=== PATIENT | female | born 1955 | race Two or more races ===

== ENCOUNTER 2024-06-23 09:50 | Emergency (ER) | payer MEDICARE, MEDICAID, SELFPAY ==
[2024-06-23 09:54] VITALS: BP 118/73; PULSE 100; RESP 17; TEMP 37.2; O2SAT 97; BMI 25.0
--- NOTE | 2024-06-23 10:36 | EDRME_ITS ---
Rapid Medical Screening Exam RME Arrival date/time: 06/23/24 09:50 69-year-old female presents to the emergency department with complaints of G- tube leaking has had that G-tube for 1 month. I have greeted and performed a focused initial assessment of this patient. Initial appropriate labs ordered at this time. A comprehensive ED assessment and evaluation of the patient and analysis of all test and completion of medical decision making process will be conducted by additional ED provider. Chief Complaint: Abdominal Pain Time Seen by Provider: 06/23/24 10:14 Vital signs: Vital Signs Temperature 98.9 F 06/23/24 09:54 Pulse Rate 100 06/23/24 09:54 Respiratory Rate 17 06/23/24 09:54 Blood Pressure 118/73 06/23/24 09:54 Pulse Oximetry (%) 97 06/23/24 09:54 Oxygen Delivery Method Room Air 06/23/24 09:54
--- NOTE | 2024-06-23 11:33 | PC.NURSE ---
PEG TUBE REPLACE BY MERRILL BROWN. PT TOLERATED WELL. PENDING XRAY FOR PLACEMENT
--- NOTE | 2024-06-23 11:35 | PD.EDADULT ---
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 G-tube was placed approximately 1 month ago patient states that she has had a G-tube for approximately 6 months patient is awake alert oriented nontoxic-appearing in mild discomfort but not in any acute distress. RME / HPI RME / HPI narrative: 06/23/24 09:50 69-year-old female presents to the emergency department with complaints of G-tube leaking has had that G-tube for 1 month. I have greeted and performed a focused initial assessment of this patient. Initial appropriate labs ordered at this time. A comprehensive ED assessment and evaluation of the patient and analysis of all test and completion of medical decision making process will be conducted by additional ED provider. Related Data Home Medications ?Medication ?Instructions ?Recorded ?Confirmed cetirizine 10 mg tablet 10 mg PO QDAY 12/10/23 12/27/23 hydrocodone 5 mg-acetaminophen 325 1 tab PO Q8H PRN Pain 12/10/23 12/10/23 mg tablet omeprazole 20 mg capsule,delayed 20 mg PO QDAY 12/10/23 12/27/23 release ondansetron 8 mg disintegrating 8 mg PO Q8H PRN Nausea 12/10/23 12/27/23 tablet prochlorperazine maleate 10 mg 10 mg PO Q8H PRN Nausea 12/10/23 12/27/23 tablet (Compazine) Previous Rx's ?Medication ?Instructions ?Recorded blood sugar diagnostic (Contour #100 ea 12/13/23 Next Test Strips) lancets (Microlet Lancet) #100 ea 12/13/23 lidocaine HCl 2 % mucosal solution 1 ml PO PRN PRN for oral pain #100 12/17/23 mL swab (Toothette swabs) #1,000 ea 12/17/23 insulin glargine 100 unit/mL (3 18 unit (0.18 mL) subcut QAM 30 12/30/23 mL) subcutaneous pen days #5.4 mL metformin 1,000 mg tablet 1,000 mg feeding tube QDAY 30 days 12/30/23 #30 tabs pen needle, diabetic 29 gauge #100 ea 12/30/23 Allergies Allergy/AdvReac Type Severity Reaction Status Date / Time No Known Allergies Allergy Verified 06/23/24 09:53 Review of Systems Review of Systems Narrative Review of Systems: GEN: No fever, no chills, no weight loss EYES: No discharge, no visual changes, no pain HEENT: No ear pain, no congestion, no sore throat PULM: No shortness of breath, no cough, no congestion CV: No chest pain, no dyspnea on exertion, no palpitations GI: No nausea, no vomiting, no diarrhea, no pain, no constipation, + stoma tenderness : No frequency, no urgency, no dysuria MUSC/SKEL: No joint pain, no back pain SKIN: No rash PSYCH: No hallucinations, no depression HEME/LYMPH: No easy bleeding or bruising tendencies NEURO: No weakness, no headache Past Medical History Past Medical History NEUROLOGIC: Negative Neurological Disorders or Seizures CARDIAC: Negative Cardiac Disorders, Congestive Heart Failure or Hypertension RESPIRATORY: Negative Chronic Obstructive Pulmonary Disease (COPD) or Asthma GASTROINTESTINAL: Positive Gastrointestinal Disorders (GT) GENITOURINARY: Negative Genitourinary Disorders or Renal Disease REPRODUCTIVE: Positive Previous Pregnancies () MUSCULOSKELETAL: Negative Musculoskeletal Disorders ENDOCRINE: Positive Endocrine Disorders and Diabetes Mellitus Type 2; Negative Diabetes Mellitus Type 1 HEMATOLOGIC: Negative Blood Disorders or Sickle Cell Disease PSYCHO/SOCIAL: Negative Depression or Anxiety OTHER HISTORY: Positive Chemotherapy, Radiation Therapy and Cancer (THROAT/TOUNGUE CANCER); Negative Autoimmune Disease, Falls, Blood Transfusions, Anesthesia Reactions, MRSA, VRSA or Vancomycin-Resistant Enterococci Family History FAMILY HISTORY: Positive Family Surgery; Negative Family Cardiac Disorders or Family Cancer Surgical History SURGICAL: Positive Oral Surgery (tongue cancer removed), Throat Surgery (CANCER REMOVED) and Hysterectomy; Negative Endocrine Surgery or Abdominal Surgery Social History SMOKING STATUS: Never smoker SECOND HAND EXPOSURE: No ED Exam Narrative Physical exam: [General: Not in any acute distress Head normocephalic HEENT: Within acceptable limits Neck is supple nontender Chest equal chest rise nontender to palpation Respiratory: Clear to auscultation no wheezes crackles or rubs CV: Rate rhythm is regular no murmurs rubs or clicks Abdomen is distended secondary to body habitus soft nontender no masses center of her abdomen stoma site has an old G-tube admitting from it there is no surrounding erythema or edema small amount of serous fluid oozing from the site. Back: No CVA tenderness no spinous process tenderness from cervical spine thoracic and lumbar spine Skin: Intact no petechiae rash induration ulceration or crepitus Extremities: Moving all extremity against resistance cap refill less than 2 seconds neurosensory intact Neuro: Awake alert oriented x3 Glascow coma 15 no focal deficits] Course Quality Measures none Orders Category Date Time Status XR abdomen 1V Stat Exams 06/23/24 11:40 Completed Vital Signs Vital signs: Vital Signs Temperature 98.9 F 06/23/24 09:54 Pulse Rate 100 06/23/24 09:54 Respiratory Rate 17 06/23/24 09:54 Blood Pressure 118/73 06/23/24 09:54 Pulse Oximetry (%) 97 06/23/24 09:54 Oxygen Delivery Method Room Air 06/23/24 09:54 Procedures -ED Procedure Comment G-tube replacement. Patient was informed verbal consent obtained, old G-tube balloon was deflated smoothly retracted from the stoma without complication new G-tube balloon was tested no leaks, balloon was then deflated G-tube was advanced without complication through the stoma G-tube balloon was inflated with 10 mL of sterile saline. Mild retention on the G-tube showed a snug firm stop. Abdominal x-ray with Gastrografin ordered. Patient tolerated the procedure well nursing applied dressing. MDM Patient data External records reviewed:: [facility] previous records Clinical information provided by:: patient Social determinants that could affect healthcare access:: none Patient has the following chronic illnesses:: Adenocarcinoma of the neck diabetes How is presenting disease/condition affected by chronic disease/condition?: uneffected by Evaluation data The following diagnostics were reviewed and interpreted by me:: radiology exam(s) Lab and/or radiology exams considered but not ordered:: Single view abdomen x-ray shows the tube is in proper place and with Gastrografin flowing into the small intestine. Cse reviewed by art Farley agrees. Interpretation Summary: New G-tube in place Medications Medications considered but not ordered:: None Medication administrations:: None Consultations Consultation(s) initiated? (list below): No Diagnosis Differential Diagnosis ED Complaint MDM: G-tube failure with a G-tube replacement, stomal cellulitis Most likely diagnosis given after review of the tests above:: G-tube replacement Admission Indicated Admission indicated?: not indicated Explain why admission is indicated or not indicated:: Stable for discharge Admission Request Was there a request for admission?: No Disposition Plan Disposition Plan: Discharge Discharge Attestation Discharge Attestation: The patient and all family members were given an opportunity to ask questions and understood the discharge instructions. Discharge instructions specifically effects, indications for sooner follow up or return to the emergency department, and the expected course of current diagnosis. Patient condition: Stable Medical Decision Making Differential Diagnosis Differential Diagnosis: G-tube failure with a G-tube replacement, stomal cellulitis Discharge Plan Plan Patient Disposition: HOME (Self Care) Patient condition on transfer: Stable Prescriptions/Referrals Prescriptions/Med Rec: No Action cetirizine 10 mg Tablet 10 mg PO QDAY Rx Instructions: Take 1 Tablet by mouth once daily for 5 days Start the day of Chemo each cycle every 2 weeks. hydrocodone-acetaminophen 5-325 mg Tablet 1 tab PO Q8H PRN (Reason: Pain) prochlorperazine maleate [Compazine] 10 mg Tablet 10 mg PO Q8H PRN (Reason: Nausea) ondansetron 8 mg Tablet,Disintegrating 8 mg PO Q8H PRN (Reason: Nausea) omeprazole 20 mg Capsule,Delayed Release(Dr/Ec) 20 mg PO QDAY (DME) Contour Next Test Strips Strip See Rx Instructions .Route Qty: 100 0RF Rx Instructions: Please test once a day (DME) lancets [Microlet Lancet] Misc See Rx Instructions .Route Qty: 100 0RF Rx Instructions: Please test once a day lidocaine HCl 2 % solution 1 ml PO PRN PRN (Reason: for oral pain) Qty: 100 0RF (DME) Toothette Swab See Rx Instructions .Route Qty: 1000 0RF Rx Instructions: As directed insulin glargine 100 unit/mL (3 mL) insulin pen 18 unit subcut QAM 30 Days Qty: 5.4 3RF (DME) pen needle, diabetic 29 gauge needle See Rx Instructions .Route Qty: 100 0RF Rx Instructions: As directed metformin 1,000 mg tablet 1,000 mg feeding tube QDAY 30 Days Qty: 30 3RF Referrals: No Primary/Family,Physician [Primary Care Provider] - In 1 week Problem List Clinical Impression: Gastrostomy tube dysfunction Patient/Caregiver Discharge Instructions Other Activity Instructions:: Keep the site clean and dry follow-up with your primary care provider if the surrounding erythema edema return the emergency room for reevaluation. Print Language: Vietnamese Stand Alone Forms: Dina Award Info., Patient Portal Info Letter MD Attestation MD Attestation The patient was seen by the midlevel practitioner. I, the co-signing physician, was present during the entire ER visit. While I did not physically examine the patient, I was available for consultation as needed.
--- NOTE | 2024-06-23 11:40 | XR_ITS ---
Examination: Abdomen AP single view Technique: AP portable supine abdomen, single view Exam date and time: June 23, 2024 1141 hours INDICATIONS: Unknown position gastrostomy tube FINDINGS: Contrast opacifies the gastrostomy tube stomach duodenal bulb and sweep, no abnormal extravasation of contrast material IMPRESSION: Gastrostomy tube satisfactory position in the stomach
== END 2024-06-23 12:43 | disposition home or self-care (01) ==
PROVIDERS: Emergency Provider Emergency Medicine
DX: K94.23 Gastrostomy malfunction (principal)
CPT/HCPCS: 43762; 74018; 99283; Q9963

== ENCOUNTER 2024-07-03 19:06 | Emergency (ER) | payer MEDICARE, MEDICAID, SELFPAY ==
[2024-07-03 19:49] VITALS: BP 135/79; PULSE 89; RESP 18; TEMP 36.8; O2SAT 96
--- NOTE | 2024-07-03 19:59 | PD.EDRME ---
Rapid Medical Screening Exam RME Arrival date/time: 07/03/24 19:06 69F with history of DM and throat cancer and hence, PEG tube presents to ED with tube plugged. Chief Complaint: General Adult/Misc Complain Vital signs: Vital Signs Temperature 98.3 F 07/03/24 19:49 Pulse Rate 89 07/03/24 19:49 Respiratory Rate 18 07/03/24 19:49 Blood Pressure 135/79 H 07/03/24 19:49 Pulse Oximetry (%) 96 07/03/24 19:49 Oxygen Delivery Method Room Air 07/03/24 19:49
--- NOTE | 2024-07-03 20:49 | PD.EDADULT ---
ED General RME/HPI General Chief complaint: General Adult/Misc Complain Stated complaint: Peg tube clogged Time Seen by Provider: 07/03/24 20:26 Arrival date/time: 07/03/24 19:06 RME / HPI RME / HPI narrative: 07/03/24 19:06 69F with history of DM and throat cancer and hence, PEG tube presents to ED with tube plugged. DR. FLOREZ MAIN ED EVALUATION: 69 year old female presents to the Emergency Department with complaint of her G-tube clogged. Denies any other symptoms at this time. PMHx: Adenocarcinoma of the neck and active treatment, G-tube in place, and diabetes. Social Hx: No tobacco, alcohol, or substance use. Related Data Home Medications ?Medication ?Instructions ?Recorded ?Confirmed cetirizine 10 mg tablet 10 mg PO QDAY 12/10/23 12/27/23 hydrocodone 5 mg-acetaminophen 325 1 tab PO Q8H PRN Pain 12/10/23 12/10/23 mg tablet omeprazole 20 mg capsule,delayed 20 mg PO QDAY 12/10/23 12/27/23 release ondansetron 8 mg disintegrating 8 mg PO Q8H PRN Nausea 12/10/23 12/27/23 tablet prochlorperazine maleate 10 mg 10 mg PO Q8H PRN Nausea 12/10/23 12/27/23 tablet (Compazine) Previous Rx's ?Medication ?Instructions ?Recorded blood sugar diagnostic (Contour #100 ea 12/13/23 Next Test Strips) lancets (Microlet Lancet) #100 ea 12/13/23 lidocaine HCl 2 % mucosal solution 1 ml PO PRN PRN for oral pain #100 12/17/23 mL swab (Toothette swabs) #1,000 ea 12/17/23 insulin glargine 100 unit/mL (3 18 unit (0.18 mL) subcut QAM 30 12/30/23 mL) subcutaneous pen days #5.4 mL metformin 1,000 mg tablet 1,000 mg feeding tube QDAY 30 days 12/30/23 #30 tabs pen needle, diabetic 29 gauge #100 ea 12/30/23 Allergies Allergy/AdvReac Type Severity Reaction Status Date / Time No Known Allergies Allergy Verified 06/23/24 09:53 Review of Systems Review of Systems Systems Reviewed: All systems reviewed, normal except as documented Past Medical History Past Medical History GASTROINTESTINAL: Positive Gastrointestinal Disorders REPRODUCTIVE: Positive Previous Pregnancies ENDOCRINE: Positive Endocrine Disorders and Diabetes Mellitus Type 2 OTHER HISTORY: Positive Chemotherapy, Radiation Therapy and Cancer Family History FAMILY HISTORY: Positive Family Surgery Surgical History SURGICAL: Positive Oral Surgery, Throat Surgery and Hysterectomy Social History SMOKING STATUS: Never smoker SECOND HAND EXPOSURE: No SUBSTANCE USE: does not use ALCOHOL: Never ED Exam Narrative Physical exam: GENERAL APPEARANCE: alert and oriented x 4, well-developed, well-nourished, no acute distress VITALS: All vitals were reviewed and the pulse ox is 96% on room air, which is normal according to my interpretation. HEENT: Normocephalic, atraumatic; pupils equal, round, reactive to light; EOMI; mucous membranes pink, moist; oropharynx clear NECK: Supple LUNGS: CTABL; no wheezes, no rales, no rhonchi HEART: Regular rate, regular rhythm; normal S1, S2; no murmurs ABDOMEN: G tube in place; non distended; normal BS; soft, no tenderness, no guarding, no rebound; no masses, no organomegaly, no hernia BACK: no CVA tenderness EXTREMITIES: atraumatic; no edema NEUROLOGIC: awake; alert and oriented x4; cranial nerves II-XII grossly intact; no focal sensory or motor deficits PSYCHIATRIC: appropriate mood and affect SKIN: warm, dry, normal color; no rashes Course Course Course Narrative: Nurse flushed tube and unclogged Quality Measures none Reevaluation(s) Reevaluation #1: Patient remains clinically stable throughout the emergency department visit. Re-assessment at the time of disposition demonstrates that the patient is in no acute distress. We reviewed all the results, analysis, and treatment plans. Patient is amenable to discharge. Strict return precautions were outlined. Patient was discharged in stable condition. Time: 21:30 Vital Signs Vital signs: Vital Signs Temperature 98.3 F 07/03/24 19:49 Pulse Rate 89 07/03/24 19:49 Respiratory Rate 18 07/03/24 19:49 Blood Pressure 135/79 H 07/03/24 19:49 Pulse Oximetry (%) 96 07/03/24 19:49 Oxygen Delivery Method Room Air 07/03/24 19:49 [facility] Patient data External records reviewed:: [facility] previous records (Reviewed last ED visit dated 06/23/24, discharged with the following: Gastrostomy tube dysfunction.) Clinical information provided by:: patient Social determinants that could affect healthcare access:: none Patient has the following chronic illnesses:: Adenocarcinoma of the neck and active treatment, G-tube in place, and diabetes. How is presenting disease/condition affected by chronic disease/condition?: exacerbated by Evaluation data The following diagnostics were reviewed and interpreted by me:: other (specify) (none) Lab and/or radiology exams considered but not ordered:: none Interpretation Summary: n/a Medications Medications considered but not ordered:: none Medication administrations:: none Consultations Consultation(s) initiated? (list below): No Diagnosis Differential Diagnosis ED Complaint MDM: Gastrostomy tube dysfunction, tube blockage, tube dislodgement Most likely diagnosis given after review of the tests above:: PEG tube malfunction Admission Indicated Admission indicated?: not indicated Explain why admission is indicated or not indicated:: Patient has no emergent abnormalities on his studies and can be managed on an outpatient basis. Admission Request Was there a request for admission?: No Disposition Plan Disposition Plan: Discharge Discharge Attestation Discharge Attestation: The patient and all family members were given an opportunity to ask questions and understood the discharge instructions. Discharge instructions specifically effects, indications for sooner follow up or return to the emergency department, and the expected course of current diagnosis. Patient condition: Stable Medical Decision Making MDM Narrative MDM Narrative: Silvia Mcneill am scribing for and in the presence of Dr. Florez. Differential Diagnosis Differential Diagnosis: Gastrostomy tube dysfunction, tube blockage, tube dislodgement Discharge Plan Plan Patient Disposition: HOME (Self Care) Prescriptions/Referrals Prescriptions/Med Rec: No Action cetirizine 10 mg Tablet 10 mg PO QDAY Rx Instructions: Take 1 Tablet by mouth once daily for 5 days Start the day of Chemo each cycle every 2 weeks. hydrocodone-acetaminophen 5-325 mg Tablet 1 tab PO Q8H PRN (Reason: Pain) prochlorperazine maleate [Compazine] 10 mg Tablet 10 mg PO Q8H PRN (Reason: Nausea) ondansetron 8 mg Tablet,Disintegrating 8 mg PO Q8H PRN (Reason: Nausea) omeprazole 20 mg Capsule,Delayed Release(Dr/Ec) 20 mg PO QDAY (DME) Contour Next Test Strips Strip See Rx Instructions .Route Qty: 100 0RF Rx Instructions: Please test once a day (DME) lancets [Microlet Lancet] Misc See Rx Instructions .Route Qty: 100 0RF Rx Instructions: Please test once a day lidocaine HCl 2 % solution 1 ml PO PRN PRN (Reason: for oral pain) Qty: 100 0RF (DME) Toothette Swab See Rx Instructions .Route Qty: 1000 0RF Rx Instructions: As directed insulin glargine 100 unit/mL (3 mL) insulin pen 18 unit subcut QAM 30 Days Qty: 5.4 3RF (DME) pen needle, diabetic 29 gauge needle See Rx Instructions .Route Qty: 100 0RF Rx Instructions: As directed metformin 1,000 mg tablet 1,000 mg feeding tube QDAY 30 Days Qty: 30 3RF Problem List Clinical Impression: PEG tube malfunction Patient/Caregiver Discharge Instructions Education Materials: Understanding PEG Tube Feeding Print Language: Occitan Stand Alone Forms: Dina Award Info., Patient Portal Info Letter
[2024-07-03 21:46] VITALS: BP 140/69; PULSE 76; RESP 19; TEMP 36.7; O2SAT 100
== END 2024-07-03 21:47 | disposition home or self-care (01) ==
LOC: SERX 21:49
PROVIDERS: Emergency Provider Emergency Medicine; PCP Nurse Practitioner Family
DX: K94.23 Gastrostomy malfunction (principal)
CPT/HCPCS: 99281

== ENCOUNTER → 2024-08-13 | Outpatient (CLI) | payer SELFPAY ==
[2024-08-13 12:52] LABS: Basophils % (Auto) 1 % (0-2.5); Eosinophils # (Auto) 0.2 Thou/mm3 (0.0-0.5); Eosinophils % (Auto) 3 % (0-10); Hematocrit 35.3 % (36.0-46.0); Hemoglobin 12.2 g/dL (12.0-16.0); Immature Granulocytes % (Auto) 1 % (0-0); Immature Granulocytes Auto 0.03 Thou/mm3 (0.00-0.00); Lymphocytes # (Auto) 1.3 Thou/mm3 (1.0-4.8); Lymphocytes % (Auto) 19 % (10-50); Mean Corpuscular HGB Conc 34.6 g/dl (31.0-37.0); Mean Corpuscular Hemoglobin 36.7 pg (25.0-35.0); Mean Corpuscular Volume 106 fL (80-100); Monocytes # (Auto) 0.7 Thou/mm3 (0.0-0.8); Monocytes % (Auto) 11 % (0-12); Neutrophils # (Auto) 4.4 Thou/mm3 (1.8-7.7); Neutrophils % (Auto) 66 % (37-80); Nucleated Red Blood Cell % 0 /100 WBC (0); Platelet Count 155 Thou/mm3 (140-440); RDW Standard Deviation 48.9 fL (36.4-46.3); Red Blood Count 3.32 Miln/mm3 (4.00-5.20); White Blood Count 6.6 Thou/mm3 (3.6-11.0)
[2024-08-13 13:06] LABS: INR 1.1 (0.9-1.3); Partial Thromboplastin Time 27.2 Seconds (22.0-36.0); Prothrombin Time 11.8 Seconds (9.0-12.2)
== END | disposition home or self-care (01) ==
PROVIDERS: PCP Family Medicine; Referring Provider Internal Medicine Gastroenterology; Visit Provider Internal Medicine Gastroenterology
DX: K94.29 Other complications of gastrostomy (principal)
CPT/HCPCS: 36415; 85025; 85610; 85730

== ENCOUNTER 2024-12-14 14:17 | Emergency (ER) | payer MEDICARE, MEDICAID, SELFPAY ==
[2024-12-14 14:41] VITALS: BP 111/66; PULSE 97; RESP 20; TEMP 37.2; O2SAT 96
--- NOTE | 2024-12-14 14:46 | XR_ITS ---
Examination: PA chest single view TECHNIQUE: Upright PA chest single view Date and time: December 14, 2024 1454 hours Indications coughing difficulty swallowing 3 days. FINDINGS: Normal heart size Port-A-Cath tip SVC satisfactory position No pneumonia or pulmonary edema Tube overlies the upper midline abdomen Prominent osteopenia IMPRESSION: No pneumonia or pulmonary edema
--- NOTE | 2024-12-14 14:52 | PD.EDDENTL ---
ED Dental RME/HPI General Chief complaint: Dental/Oral/Throat Stated complaint: COUGH, TROUBLE SWALLOWING X 2 WEEKS Time Seen by Provider: 12/14/24 14:23 Source: patient and family Arrival date/time: 12/14/24 14:17 This is a case of 69 year old female with his came in with sorethroat for 2 weeks and productive cough and nasal congestion with mild hoarseness of voice and pain pain upon swallowing patient still able to swallow her saliva no fever no chills no SOB no chest pain no drooling of saliva Mode of arrival: ambulatory Limitations: no limitations Related Data Home Medications ?Medication ?Instructions ?Recorded ?Confirmed cetirizine 10 mg tablet 10 mg PO QDAY 12/10/23 12/27/23 hydrocodone 5 mg-acetaminophen 325 1 tab PO Q8H PRN Pain 12/10/23 12/10/23 mg tablet omeprazole 20 mg capsule,delayed 20 mg PO QDAY 12/10/23 12/27/23 release ondansetron 8 mg disintegrating 8 mg PO Q8H PRN Nausea 12/10/23 12/27/23 tablet prochlorperazine maleate 10 mg 10 mg PO Q8H PRN Nausea 12/10/23 12/27/23 tablet (Compazine) Previous Rx's ?Medication ?Instructions ?Recorded blood sugar diagnostic (Contour #100 ea 12/13/23 Next Test Strips) lancets (Microlet Lancet) #100 ea 12/13/23 lidocaine HCl 2 % mucosal solution 1 ml PO PRN PRN for oral pain #100 12/17/23 mL swab (Toothette swabs) #1,000 ea 12/17/23 insulin glargine 100 unit/mL (3 18 unit (0.18 mL) subcut QAM 30 12/30/23 mL) subcutaneous pen days #5.4 mL metformin 1,000 mg tablet 1,000 mg feeding tube QDAY 30 days 12/30/23 #30 tabs pen needle, diabetic 29 gauge #100 ea 12/30/23 albuterol sulfate 90 mcg/actuation 2 inh inhalation Q4H PRN shortness 12/14/24 breath activated powder inhaler of breath or wheezing #1 ea amoxicillin 875 mg-potassium 1 tab PO BID 10 days #20 tabs 12/14/24 clavulanate 125 mg tablet lidocaine HCl 2 % mucosal solution 15 ml PO Q4HR PRN sorethroat #100 12/14/24 (Lidocaine Viscous) mL promethazine 6.25 mg/5 mL oral 6.25 mg (5 mL) PO TID PRN cough 12/14/24 syrup #100 mL Allergies Allergy/AdvReac Type Severity Reaction Status Date / Time No Known Allergies Allergy Verified 12/14/24 14:18 Review of Systems Review of Systems Systems Reviewed: All systems reviewed, normal except as documented Constitutional Constitutional: Reports system reviewed and no additional complaints, except as documented, Reports as per HPI, Denies chills, Denies excessive sweating, Denies fatigue, Denies fever(s), Denies headache(s), Denies increased appetite, Denies poor appetite, Denies lethargy, Denies malaise, Denies night sweats and Denies snoring ENT Ears, Nose, Mouth, and Throat: Reports system reviewed and no additional complaints, except as documented, Reports as per HPI, Denies abnormal hearing, Denies bleeding gums, Denies change in voice, Denies dental pain, Denies disequilibrium, Denies dizziness, Denies dry mouth, Denies dysphagia, Denies ear discharge, Denies otalgia, Denies epistaxis, Denies facial pain, Denies halitosis, Denies headache(s), Denies hearing loss, Reports hoarseness, Denies lip swelling, Denies mouth lesions, Denies mouth pain, Reports nasal congestion, Reports nasal discharge, Denies nasal obstruction, Denies nasal trauma, Denies neck mass, Denies neck pain, Denies nose pain, Denies odynophagia, Denies post nasal drip, Denies sinus pain, Denies sinus pressure, Reports sore throat, Denies throat swelling, Denies tinnitus, Denies tongue swelling and Denies vertigo Cardiovascular Cardiovascular: Reports system reviewed and no additional complaints, except as documented, Reports as per HPI, Denies chest pain, Denies dyspnea and Denies dyspnea on exertion Respiratory Respiratory: Reports system reviewed and no additional complaints, except as documented, Reports as per HPI, Denies change in phlegm color, Denies chest congestion, Reports cough, Denies dyspnea, Denies dyspnea on exertion, Denies excessive phlegm production, Denies hemoptysis, Denies pain on inspiration, Denies pain with cough, Denies snoring and Denies stridor Gastrointestinal Gastrointestinal: Reports system reviewed and no additional complaints, except as documented, Reports as per HPI, Denies dysphagia and Denies odynophagia Musculoskeletal Musculoskeletal: Reports system reviewed and no additional complaints, except as documented, Reports as per HPI and Denies neck pain Integumentary/Breasts Skin/Breast: Reports system reviewed and no additional complaints, except as documented and Reports as per HPI Neurologic Neurologic: Reports system reviewed and no additional complaints, except as documented, Reports as per HPI, Denies abnormal hearing, Denies disequilibrium, Denies dizziness, Denies headache(s) and Denies vertigo Endocrine Endocrine: Denies excessive sweating and Denies fatigue Allergic/Immunologic Allergic/Immunologic: Denies lip swelling, Denies throat swelling and Denies tongue swelling Past Medical History Past Medical History NEUROLOGIC: Negative Neurological Disorders or Seizures CARDIAC: Negative Cardiac Disorders, Congestive Heart Failure or Hypertension RESPIRATORY: Negative Chronic Obstructive Pulmonary Disease (COPD) or Asthma GASTROINTESTINAL: Positive Gastrointestinal Disorders GENITOURINARY: Negative Genitourinary Disorders or Renal Disease REPRODUCTIVE: Positive Previous Pregnancies MUSCULOSKELETAL: Negative Musculoskeletal Disorders ENDOCRINE: Positive Endocrine Disorders and Diabetes Mellitus Type 2; Negative Diabetes Mellitus Type 1 HEMATOLOGIC: Negative Blood Disorders or Sickle Cell Disease PSYCHO/SOCIAL: Negative Depression or Anxiety OTHER HISTORY: Positive Chemotherapy, Radiation Therapy and Cancer; Negative Autoimmune Disease, Falls, Blood Transfusions, Anesthesia Reactions, MRSA, VRSA or Vancomycin-Resistant Enterococci Family History FAMILY HISTORY: Positive Family Surgery; Negative Family Cardiac Disorders or Family Cancer Surgical History SURGICAL: Positive Oral Surgery, Throat Surgery and Hysterectomy; Negative Endocrine Surgery or Abdominal Surgery Social History SMOKING STATUS: Never smoker SECOND HAND EXPOSURE: No SUBSTANCE USE: does not use ED Exam General Limitations: Present no limitations General appearance: Present alert and in no apparent distress; Absent appears intoxicated, lethargic or in distress Head Head exam: Present atraumatic and normocephalic Eye Eye exam: Present normal appearance, PERRL and EOMI Expanded ENT Exam Nasal speculum exam: Bilateral: normal Mouth exam: Present normal external inspection Throat exam: Present tonsillar erythema, tonsillomegaly, tonsillar exudate and other (tonsillar swollen red mild exudate uvula normal no peritonsillar abscess no neck mass no ludwigs angina no drooling of [place] no muffled voice no hot potato voice) Neck Neck exam: Present normal inspection, full ROM and trachea midline; Absent tenderness, meningismus, lymphadenopathy or thyromegaly Chest Chest inspection: Present normal inspection and symmetric chest wall rise; Absent tenderness Respiratory Respiratory exam: Present wheezes (mild both lower lung); Absent respiratory distress, stridor, accessory muscle use or prolonged expiratory phase Cardiovascular Cardiovascular exam: Present regular rate, normal rhythm and normal heart sounds; Absent bradycardia, tachycardia, irregular rhythm, systolic murmur or diastolic murmur Abdominal Exam Abdominal exam: Present soft; Absent tenderness External exam: Present normal external exam Extremities Exam Extremities exam: Present normal inspection and full ROM Neurological Exam Neurological exam: Present alert, oriented X3, normal gait and reflexes normal; Absent motor sensory deficit Course Quality Measures none Orders Category Date Time Status XR chest 1V portable Stat Exams 12/14/24 14:46 Taken Strep A Rapid Stat Lab 12/14/24 14:51 Completed cefTRIAXone [Rocephin] 1,000 mg Med 12/14/24 15:31 Discontinued Lidocaine 1% 20 ml [Xylocaine 1% 20 ML] 2.1 ml IM X1 Vital Signs Vital signs: Vital Signs Temperature 98.9 F 12/14/24 14:41 Pulse Rate 97 12/14/24 14:41 Respiratory Rate 20 12/14/24 14:41 Blood Pressure 111/66 12/14/24 14:41 Pulse Oximetry (%) 96 12/14/24 14:41 Oxygen Delivery Method Room Air 12/14/24 14:41 oxygen saturation 96 percent wnl Dental / Oral MDM Narrative MDM Narrative:: This is a case of 69 year old female with his came in with sorethroat for 2 weeks and productive cough and nasal congestion with mild hoarseness of voice and pain pain upon swallowing patient still able to swallow her saliva no fever no chills no SOB no chest pain no drooling of saliva Physical exam showed Test as follow negative rapid strep xray nor mal no infiltrated no pneumonia Based on my physical exam and history patient symptoms suggestive of tonsillitis bronchitis and will be treated with rocpehin im here prescibed with augmentin ventloin inhaler lidocaine viscous for sorethroat and cought medication Patient was discharged with comfortable condition walking with stable gait. Patient verbalized no further complains explained diagnosis and answered patient question. Patient is comfrtable with the proposed management plan including the need to follow up with his/her primary care physician and any specialist if applicable Discussed patient for any urgent condition or worsening sx, He/She needed to go to emergncy room immediately or call 911. Patient acknowledge the responsibility to follow up as instructed and to monitor her/his symptoms. For any persistnce of the symtoms for more than 3-5 days reurn precaution advsied. Discussed the result of the test and was given printed discharge instruction tonsillar swollen red mild exudate uvula normal no peritonsillar abscess no neck mass no ludwigs angina no drooling of [place] no muffled voice no hot potato voice Patient data External records reviewed:: [facility] previous records Clinical information provided by:: patient and family Social determinants that could affect healthcare access:: none Patient has the following chronic illnesses:: none How is presenting disease/condition affected by chronic disease/condition?: no chronic disease Evaluation data The following diagnostics were reviewed and interpreted by me:: lab results and radiology exam(s) Lab and/or radiology exams considered but not ordered:: reviwed Interpretation Summary: reviewed Medications / Prescriptions Medications or Prescriptions considered but not ordered:: given Medication administrations:: Medication Administration History Discontinued Medications Ceftriaxone Sodium 1,000 mg/ (Lidocaine HCl 2.1 ml) 0 mg IM X1 ONE Stop: 12/14/24 15:32 given Consultations Consultation(s) initiated? (list below): No Diagnosis Most likely diagnosis given after review of the tests above:: tonsillitis, pharyngitis Admission Indicated Admission indicated?: not indicated Explain why admission is indicated or not indicated:: not indicated Admission Request Was there a request for admission?: No Admission Attestation Admission request attestation: not indicated Disposition Plan Disposition Plan: Discharge Discharge Attestation Discharge Attestation: The patient and all family members were given an opportunity to ask questions and understood the discharge instructions. Discharge instructions specifically effects, indications for sooner follow up or return to the emergency department, and the expected course of current diagnosis. Patient condition: Stable Discharge Plan Plan Patient Disposition: HOME (Self Care) Patient condition on transfer: Stable Prescriptions/Referrals Prescriptions/Med Rec: New amoxicillin-pot clavulanate 875-125 mg tablet 1 tab PO BID 10 Days Qty: 20 0RF lidocaine HCl [Lidocaine Viscous] 2 % solution 15 ml PO Q4HR PRN (Reason: sorethroat) Qty: 100 0RF albuterol sulfate 90 mcg/actuation aerosol powdr breath activated 2 inh inhalation Q4H PRN (Reason: shortness of breath or wheezing) Qty: 1 0RF promethazine 6.25 mg/5 mL syrup 6.25 mg PO TID PRN (Reason: cough) Qty: 100 0RF Rx Instructions: 3 doses during day; last dose no later than 4 hr before bedtime No Action cetirizine 10 mg Tablet 10 mg PO QDAY Rx Instructions: Take 1 Tablet by mouth once daily for 5 days Start the day of Chemo each cycle every 2 weeks. hydrocodone-acetaminophen 5-325 mg Tablet 1 tab PO Q8H PRN (Reason: Pain) prochlorperazine maleate [Compazine] 10 mg Tablet 10 mg PO Q8H PRN (Reason: Nausea) ondansetron 8 mg Tablet,Disintegrating 8 mg PO Q8H PRN (Reason: Nausea) omeprazole 20 mg Capsule,Delayed Release(Dr/Ec) 20 mg PO QDAY (DME) Contour Next Test Strips Strip See Rx Instructions .Route Qty: 100 0RF Rx Instructions: Please test once a day (DME) lancets [Microlet Lancet] Misc See Rx Instructions .Route Qty: 100 0RF Rx Instructions: Please test once a day lidocaine HCl 2 % solution 1 ml PO PRN PRN (Reason: for oral pain) Qty: 100 0RF (DME) Toothette Swab See Rx Instructions .Route Qty: 1000 0RF Rx Instructions: As directed insulin glargine 100 unit/mL (3 mL) insulin pen 18 unit subcut QAM 30 Days Qty: 5.4 3RF (DME) pen needle, diabetic 29 gauge needle See Rx Instructions .Route Qty: 100 0RF Rx Instructions: As directed metformin 1,000 mg tablet 1,000 mg feeding tube QDAY 30 Days Qty: 30 3RF Referrals: No Primary/Family,Physician [Primary Care Provider] - In 1 week Problem List Clinical Impression: Acute tonsillitis, Acute bronchitis Patient/Caregiver Discharge Instructions Education Materials: Acute Bronchitis, ED Tonsillitis (Child) Additional Instructions: increase water intake warm saline gurgle Print Language: Bol[place]ian Stand Alone Forms: Dina Award Info., Patient Portal Info Letter PA/DEBONE PROCESSING SUPERVISOR Supervising Physician PA/DEBONE PROCESSING SUPERVISOR Supervising Physician: dr [email or web address]
[2024-12-14 15:24] LABS: Strep A Rapid Negative (Negative)
[2024-12-14] MEDS: cefTRIAXone 1,000 MG, LIDOCAINE 1% 20 ML 2.1 ML IM (15:54)
== END 2024-12-14 16:01 | disposition home or self-care (01) ==
PROVIDERS: Nurse Practitioner Family; Emergency Provider Family Medicine
DX: J03.90 Acute tonsillitis, unspecified (principal); J20.9 Acute bronchitis, unspecified
CPT/HCPCS: 71045; 87651; 96372; 99283; J0696; J3490

== ENCOUNTER → 2025-02-20 | Outpatient (CLI) | payer MEDICARE, MEDICAID, SELFPAY ==
--- NOTE | 2025-02-20 09:30 | XR_ITS ---
Examination: Bone densitometry Date and time of exam:February 20, 2025 0940 hours INDICATIONS: Menopause age 50 Technique: Lumbar spine and hip total bone mineralization values of an calculated. Peak reference and age match control results have been displayed. Findings: Lumbar spine total bone mineralization is0.752 gm/cm2. This is 2.7 standard deviations below peak reference. This is 0.6 standard deviations below age-matched controls. Hip total bone mineralization is 0.626 gm/cm2 This is 2.6 standard deviations below peak reference. This is 1.1 standard deviations below age-matched controls Impression: There is osteoporosis based on lumbar spine measurements. There is osteoporosis based on hip measurements
== END | disposition home or self-care (01) ==
LOC: CDIM 08:56
PROVIDERS: Referring Provider Nurse Practitioner Family; Visit Provider Nurse Practitioner Family
DX: Z13.820 Encounter for screening for osteoporosis (principal); M81.0 Age-related osteoporosis without current pathological fracture
CPT/HCPCS: 77080

== ENCOUNTER → 2025-04-07 | Outpatient (CLI) | payer MEDICARE, MEDICAID, SELFPAY ==
--- NOTE | 2025-04-07 | XR_ITS ---
Examination: Bilateral hands 4 views TECHNIQUE: AP lateral right and left hands total 4 views Date and time: April 07, 2025 1142 hours INDICATIONS: Bilateral hand pain and stiffness 3 weeks. FINDINGS: Severe osteopenia Mild diffuse narrowing joints of the wrists and hands bilaterally No definite erosive arthritis No fractures No foreign bodies IMPRESSION: Severe osteopenia Mild diffuse narrowing joints of the wrists and hands bilaterally without definite erosive arthritis Mild to moderate osteoarthritis of the first carpometacarpal joints
== END | disposition home or self-care (01) ==
PROVIDERS: PCP Nurse Practitioner Family; Referring Provider Nurse Practitioner Family; Visit Provider Nurse Practitioner Family
DX: M85.842 Other specified disorders of bone density and structure, left hand (principal); M85.841 Other specified disorders of bone density and structure, right hand; M25.842 Other specified joint disorders, left hand; M25.841 Other specified joint disorders, right hand; M19.042 Primary osteoarthritis, left hand; M19.041 Primary osteoarthritis, right hand
CPT/HCPCS: 73120

== ENCOUNTER → 2025-05-21 | Outpatient (CLI) | payer MEDICARE, MEDICAID, SELFPAY ==
--- NOTE | 2025-05-21 11:00 | XR_ITS ---
Examination: Pelvic ultrasound, transabdominal, complete Technique: Transabdominal ultrasound of the pelvis performed using grayscale imaging Date and time of exam: May 21, 2025, 1127 hours INDICATIONS: Hysterectomy 2004, lower abdominal pelvic pain beginning 1 week ago. FINDINGS: Absent uterus, absent ovaries. No free fluid in the pelvis No pelvic mass IMPRESSION: No free fluid in the pelvis, no pelvic mass
--- NOTE | 2025-05-21 11:00 | XR_ITS ---
Examination: Abdomen sonogram, complete Date and time of exam: May 21, 2025, 1116 hours INDICATIONS: Lower pelvic pain beginning 1 week ago. Technique: Multiple real-time grayscale transabdominal sonographic images of the abdomen have been obtained. Findings: Normal gallbladder. 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
== END | disposition home or self-care (01) ==
PROVIDERS: PCP Nurse Practitioner Family; Referring Provider Nurse Practitioner Family; Visit Provider Nurse Practitioner Family
DX: K76.0 Fatty (change of) liver, not elsewhere classified (principal); N28.89 Other specified disorders of kidney and ureter
CPT/HCPCS: 76700; 76856

== ENCOUNTER 2025-06-05 14:53 | Emergency (ER) | payer MEDICAID, SELFPAY ==
[2025-06-05 14:54] VITALS: BMI 24.5
[2025-06-05 15:00] VITALS: BP 142/82; PULSE 93; RESP 20; TEMP 36.9; O2SAT 96
--- NOTE | 2025-06-05 15:24 | EDNOTE_ITS ---
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 Denies any vomiting, diarrhea, fever, abdominal pain, dysuria, rash. translation with Franky Marj [facility] at [facility] Related Data Home Medications ?Medication ?Instructions ?Recorded ?Confirmed cetirizine 10 mg tablet 10 mg PO QDAY 12/10/2312/26 hydrocodone 5 mg-acetaminophen 325 1 tab PO Q8H PRN Pa in 12/10/23 12/10/23 mg tablet omeprazole 20 mg capsule,delayed 20 mg PO QDAY 4 12/27/23 release ondansetron 8 mg disintegrating 8 mg PO Q8H PRN Nausea 12/10/23 12/27/23 tablet prochlorperazine maleate 10 mg 10 mg PO Q8H PRN Nausea 12/10/23 12/27/23 tablet (Compazine) Previous Rx's ?Medication ?Instructions ?Recorded blood sugar diagnostic (Contour #100 ea 12/13/23 Next Test Strips) lancets (Microlet Lancet) #100 ea 12/13/23 lidocaine HCl 2 % mucosal solution 1 ml PO PRN PRN for oral pain #100 12/17/23 mL swab (Toothette swabs) #1,000 ea 12/17/23 insulin glargine 100 unit/mL (3 18 unit (0.18 mL) subc ut QAM 30 12/30/23 mL) subcutaneous pen days #5.4 mL metformin 1,000 mg tablet 1,000 mg feeding tube QDAY 3 0 days 12/30/23 #30 tabs pen needle, diabetic 29 gauge #100 ea 12/30/23 albuterol sulfate 90 mcg/actuation 2 inh inhalation Q4 H PRN shortness 12/14/24 breath activated powder inhaler of breath or wheezing #1 ea lidocaine HCl 2 % mucosal solution 15 ml PO Q4HR PRN s orethroat #100 12/14/24 (Lidocaine Viscous) mL promethazine 6.25 mg/5 mL oral 6.25 mg (5 mL) PO TID P RN cough 12/14/24 syrup #100 mL Allergies Allergy/AdvReac Type Severity Reaction Status Date / Time No Known Allergies Allergy Verified 06/05/25 14:54 Past Medical History Past Medical History NEUROLOGIC: Negative Neurological Disorders or Seizures CARDIAC: Negative Cardiac Disorders, Congestive Heart Failure or Hypertension RESPIRATORY: Negative Chronic Obstructive Pulmonary Disease (COPD) or Asthma GASTROINTESTINAL: Positive Gastrointestinal Disorders GENITOURINARY: Negative Genitourinary Disorders or Renal Disease REPRODUCTIVE: Positive Previous Pregnancies MUSCULOSKELETAL: Negative Musculoskeletal Disorders ENDOCRINE: Positive Endocrine Disorders and Diabetes Mellitus Type 2; Negative Diabetes Mellitus Type 1 HEMATOLOGIC: Negative Blood Disorders or Sickle Cell Disease PSYCHO/SOCIAL: Negative Depression or Anxiety OTHER HISTORY: Positive Chemotherapy, Radiation Therapy and Cancer; Negative Autoimmune Disease, Falls, Blood Transfusions, Anesthesia Reactions, MRSA, VRSA or Vancomycin-Resistant Enterococci Family History FAMILY HISTORY: Positive Family Surgery; Negative Family Cardiac Disorders or Family Cancer Surgical History SURGICAL: Positive Oral Surgery, Throat Surgery and Hysterectomy; Negative Endocrine Surgery or Abdominal Surgery Social History SMOKING STATUS: Never smoker SECOND HAND EXPOSURE: No SUBSTANCE USE: does not use ED Exam Narrative Physical exam: Constitutional: Vital Signs Reviewed. Well appearing. No acute distress. Not toxic appearing. Head: Normocephalic, atraumatic. Eyes: Conjunctiva clear. ENT: Mucous membranes moist. Neck: Trachea midline. Normal range of motion. No nuchal rigidity. Scar noted anteriorly to her neck. Respiratory: Normal effort. No respiratory distress or accessory muscle use. Neuro: Alert and oriented. Speech normal. No focal gross motor or sensory deficits observed. Abdomen: G-tube stoma with [address] and gastric secretions noted on a gauze pad adjacent to the stoma however no active drainage at this time. [place] granulation tissue noted at stoma. No erythema, purulent drainage, TTP, or induration adjacent to the stoma. Abdomen remains soft and nontender to palpation without guarding or distention. Skin: Warm, dry, normal color. Psych: Pleasant. Normal affect. Cooperative. Course Course Course Narrative: This patient has chosen to leave the Emergency Department against medical advice. The risks involved in refusing further diagnostic testing and medical care have been explained to the patient in detail. The risks include progression of current medical condition, permanent disability, and, potentially, . The patient demonstrates an understanding of the risk and is competent to make this decision at this time. About 4:30 PM Quality Measures none Orders Category Date Time Status CBC Stat Lab 06/05/25 16:07 Completed CMP [Comprehensive Metabolic Panel] Stat Lab 06/05/25 16:07 Completed Vital Signs Vital signs: Vital Signs Temperature 98.4 F 06/05/25 15:00 Pulse Rate 93 06/05/25 15:00 Respiratory Rate 20 06/05/25 15:00 Blood Pressure 142/82 H 06/05/25 15:00 Pulse Oximetry (%) 96 06/05/25 15:00 Oxygen Delivery Method Room Air 06/05/25 15:00 Discharge Plan Plan Patient Disposition: Left Against Medical Advice Patient condition on transfer: Stable Prescriptions/Referrals Prescriptions/Med Rec: No Action cetirizine 10 mg Tablet 10 mg PO QDAY Rx Instructions: Take 1 Tablet by mouth once daily for 5 days Start the day of Chemo each cycle every 2 weeks. hydrocodone-acetaminophen 5-325 mg Tablet 1 tab PO Q8H PRN (Reason: Pain) prochlorperazine maleate [Compazine] 10 mg Tablet 10 mg PO Q8H PRN (Reason: Nausea) ondansetron 8 mg Tablet,Disintegrating 8 mg PO Q8H PRN (Reason: Nausea) omeprazole 20 mg Capsule,Delayed Release(Dr/Ec) 20 mg PO QDAY (DME) Contour Next Test Strips Strip See Rx Instructions .Route Qty: 100 0RF Rx Instructions: Please test once a day (DME) lancets [Microlet Lancet] Misc See Rx Instructions .Route Qty: 100 0RF Rx Instructions: Please test once a day lidocaine HCl 2 % solution 1 ml PO PRN PRN (Reason: for oral pain) Qty: 100 0RF (DME) Toothette Swab See Rx Instructions .Route Qty: 1000 0RF Rx Instructions: As directed insulin glargine 100 unit/mL (3 mL) insulin pen 18 unit subcut QAM 30 Days Qty: 5.4 3RF (DME) pen needle, diabetic 29 gauge needle See Rx Instructions .Route Qty: 100 0RF Rx Instructions: As directed metformin 1,000 mg tablet 1,000 mg feeding tube QDAY 30 Days Qty: 30 3RF lidocaine HCl [Lidocaine Viscous] 2 % solution 15 ml PO Q4HR PRN (Reason: sorethroat) Qty: 100 0RF albuterol sulfate 90 mcg/actuation aerosol powdr breath activated 2 inh inhalation Q4H PRN (Reason: shortness of breath or wheezing) Qty: 1 0RF promethazine 6.25 mg/5 mL syrup 6.25 mg PO TID PRN (Reason: cough) Qty: 100 0RF Rx Instructions: 3 doses during day; last dose no later than 4 hr before bedtime Problem List Clinical Impression: Peristomal leakage from gastrostomy Patient/Caregiver Discharge Instructions Print Language: [place] PA/[employer] Supervising Physician PA/[employer] Supervising Physician: Dr. Burgess MDM Narrative MDM hospital course (for use when minimal MDM required): Concern for peristomal leakage which is mild of unclear etiology however it may have occurred due to inappropriate administration of feeds as she states she does perform 3 tube feeds at one time which may be overloading her tube volume G-tube was flushed here in the ER and no peristomal leakage was noted and the tube appeared to be patent No signs of hemorrhage or infection Serial abdominal exams benign without peritonitis and patient not complaining of any abdominal pain ED dispo pending ED course plan for basic labs as well as confirmation of tube location After labs were drawn pt decided to leave AMA at 4:30 PM because it is no longer leaking Labs Lab(s) Interpretation(s): Lab work is notable for BUN being minimally elevated at 25, glucose minimally elevated 207 with a normal CO2 of 28.9 and a normal anion gap of 9, AST minimally elevated at 36, alk phos minimally elevated 123 however ALT within normal limits as well as total bilirubin otherwise no severe metabolic or electrolyte abnormality
[2025-06-05 16:25] LABS: Basophils # (Auto) 0.0 Thou/mm3 (0.0-0.2); Basophils % (Auto) 0 % (0-2.5); Eosinophils # (Auto) 0.2 Thou/mm3 (0.0-0.5); Eosinophils % (Auto) 3 % (0-10); Hematocrit 37.7 % (36.0-46.0); Hemoglobin 12.4 g/dL (12.0-16.0); Immature Granulocytes Auto 0.03 Thou/mm3 (0.00-0.00); Lymphocytes # (Auto) 1.9 Thou/mm3 (1.0-4.8); Lymphocytes % (Auto) 26 % (10-50); Mean Corpuscular HGB Conc 32.9 g/dl (31.0-37.0); Mean Corpuscular Hemoglobin 34.1 pg (25.0-35.0); Mean Corpuscular Volume 104 fL (80-100); Monocytes # (Auto) 0.7 Thou/mm3 (0.0-0.8); Monocytes % (Auto) 9 % (0-12); Neutrophils # (Auto) 4.3 Thou/mm3 (1.8-7.7); Neutrophils % (Auto) 61 % (37-80); Nucleated Red Blood Cell # 0.00 Thou/mm3 (0.00-0.00); Nucleated Red Blood Cell % 0 /100 WBC (0); Platelet Count 185 Thou/mm3 (140-440); RDW Standard Deviation 52.9 fL (36.4-46.3); Red Blood Count 3.64 Miln/mm3 (4.00-5.20); White Blood Count 7.1 Thou/mm3 (3.6-11.0)
[2025-06-05 16:41] LABS: Alanine Aminotransferase 27 U/L (10-49); Albumin, Serum 4.5 gm/dL (3.4-4.8); Albumin/Globulin Ratio 1.9 (1.2-2.2); Alkaline Phosphatase 123 U/L (46-116); Anion Gap 9 (7-16); Aspartate Amino Transferase 36 U/L (0-34); BUN/Creatinine Ratio 36 Ratio (12-20); Bilirubin,Total 0.4 mg/dL (0.3-1.2); Blood Urea Nitrogen 25 mg/dL (9-23); Calcium 9.7 mg/dL (8.3-10.6); Calcium (Corrected) 9.7 mg/dL (8.5-10.1); Carbon Dioxide 28.9 mMol/L (20.0-31.0); Chloride 104 mMol/L (98-107); Creatinine (Component) 0.7 mg/dL (0.6-1.3); Estimated Creatinine Clearance 61.7 mL/min (>60); Globulin 2.4 gm/dL (2.3-3.5); Glucose 207 mg/dL (74-106); Osmolality,Calculated 293 (275-295); Potassium 4.2 mMol/L (3.4-5.1); Sodium 142 mMol/L (136-145); Total Protein 6.9 gm/dL (5.7-8.2); eGFR > 60 See Note
== END 2025-06-05 16:31 | disposition left against medical advice (07) ==
PROVIDERS: Physician Assistant; Emergency Provider Family Medicine; PCP Nurse Practitioner Family
DX: K94.23 Gastrostomy malfunction (principal); Z53.29 Procedure and treatment not carried out because of patient's decision for other reasons
CPT/HCPCS: 36415; 80053; 85025; 99282